=== PATIENT | male | born 1960 | race American Indian/Alaskan Native ===

== ENCOUNTER 2021-11-27 05:54 | Day surgery (SDC) | payer MEDICAID ==
[2021-11-21 11:33] LABS: Hematocrit 41.8 % (35.5-45.6); Hemoglobin 13.6 gm/dl (11.8-15.2); Mean Corpuscular HGB Conc 33 % (32-34); Mean Corpuscular Volume 94 fl (84-94); Platelet Count 173 K/mm3 (140-440); Red Blood Count 4.44 M/mm3 (3.65-5.03); Red Cell Distribution Width 15.5 % (13.2-15.2)
[2021-11-21 11:48] LABS: Alanine Aminotransferase 12 units/L (7-56); Albumin 4.3 g/dL (3.9-5); Blood Urea Nitrogen 12 mg/dL (9-20); Calcium 10.4 mg/dL (8.4-10.2); Hemolysis Index 3
[2021-11-21 11:50] LABS: BUN/Creatinine Ratio 24
--- NOTE | 2021-11-21 14:25 | Anesthesia Consultation ---
Anesthesia Consult and Med Hx Date of service: 11/27/21 - Airway Anesthetic Teeth Evaluation: Poor (loose lower incisors, multiple missing and decaying teeth) ROM Head & Neck: Adequate Mental/Hyoid Distance: Adequate Mallampati Class: Class III Intubation Access Assessment: Possibly Difficult - Pulmonary Exam CTA: Yes (no wheezing, good air entry throughout) - Cardiac Exam Cardiac Exam: RRR - Pre-Operative Health Status ASA Pre-Surgery Classification: ASA4 Proposed Anesthetic Plan: General - Pulmonary Hx Smoking: Yes (1/2 PPD) SOB: Yes (chronic stable MEEK) COPD: Yes Home Oxygen Therapy: No (has home O2 tank but does not use; normal RA SpO2 in PAT) - Cardiovascular System Hx Hypertension: No Hx Heart Attack/AMI: No Hx Percutaneous Transluminal Coronary Angioplasty (PTCA): No Hx Cardia Arrhythmia: No - Central Nervous System CVA: No - Endocrine Hx Renal Disease: No Hx Liver Disease: No Hx Insulin Dependent Diabetes: No Hx Non-Insulin Dependent Diabetes: No Hx Thyroid Disease: No - Other Systems Hx Alcohol Use: Yes (hx EtOH abuse, currently drinks 8oz beer daily; taking naltrexone) - Additional Comments Anesthesia Medical History Comments: No prior GA. No FHx anesthetic complications. Instructed to hold naltrexone 3 days prior to surgery and to use symbicort and spiriva inhalers morning of surgery. Discussed possibility of post-op respiratory insufficiency requiring inpatient admission.
[2021-11-27] MEDS ORDERED: MIDAZOLAM 2 MG/2 ML INJ IV NR (06:00)
[2021-11-27] MEDS ORDERED: LACTATED RINGERS 1,000 ML IV SCH (06:00)
[2021-11-27] MEDS ORDERED: BACTERIOSTATIC SODIUM CHLORIDE 0.9% 30 ML VIAL INFILTRATI ONE (06:34)
[2021-11-27] MEDS ORDERED: fentaNYL 100 MCG/2 ML INJ ONE ×2 (07:23→10:52)
[2021-11-27] MEDS ORDERED: propofoL 200 MG/20 ML VIAL IV ONE (07:23)
[2021-11-27] MEDS ORDERED: LIDOCAINE MPF (2%) 20 MG/1 ML VIAL 5 ML ONE (07:23)
[2021-11-27] MEDS ORDERED: HYDROmorphone 1 MG/1 ML INJ IV PRN ×2 (07:38)
[2021-11-27] MEDS ORDERED: ONDANSETRON 4 MG/2 ML INJ IV PRN (07:38)
--- NOTE | 2021-11-27 07:38 | Anesthesia Day of Surgery ---
Anesthesia Day of Surgery - Day of Surgery Patient Examined: Yes Patient H&P Reviewed: Yes Patient is NPO: Yes
[2021-11-27] MEDS ORDERED: GENTAMICIN/NS 80 MG/100 ML 100 ML IV ONE ×2 (09:23→10:00)
[2021-11-27] MEDS ORDERED: GENTAMICIN 80 MG in SODIUM CHLORIDE 0.9% 100 ML IV SCH (09:30)
[2021-11-27] MEDS ORDERED: ceFAZolin/STERILE WATER 2 GM/20 ML SYRINGE IV NR (10:00)
[2021-11-27] MEDS ORDERED: SODIUM CHLORIDE 0.9% IRRIG SOLN 2000 ML IR ONE (10:03)
[2021-11-27] MEDS ORDERED: dexAMETHasone 20 MG/5 ML VIAL ONE (10:18)
[2021-11-27] MEDS ORDERED: ONDANSETRON 4 MG/2 ML INJ ONE (10:18)
[2021-11-27] MEDS ORDERED: PHENYLEPHRINE/NS 1,000 MCG/10 ML SYRINGE (OR USE) IV ONE (10:25)
--- NOTE | 2021-11-27 11:07 | Operative Report ---
DATE OF SURGERY: 11/27/2021 PREOPERATIVE DIAGNOSES: 1. Urinary retention. 2. Benign prostatic enlargement. POSTOPERATIVE DIAGNOSE: 1. Urinary retention. 2. Benign prostatic enlargement. OPERATIVE PROCEDURE: TURP/___. ATTENDING: Surinder Hoffman MD UNDERGROUND PRODUCTION FOREPERSON: None. ANESTHESIA: General. ESTIMATED BLOOD LOSS: 25 mL. DRAINS: A 22-[place] 3-way Mujica catheter. SPECIMENS: TUR chips. COMPLICATIONS: None. INDICATIONS FOR PROCEDURE: The patient is a 61-year-old man who presented in urinary retention. Evaluation revealed an obstructing enlarged prostate. He was brought to the operating room for outlet reduction in the hopes that it would relieve his urinary retention. DESCRIPTION OF PROCEDURE IN DETAIL: After the induction of suitable anesthesia and proper positioning and preparation in the dorsal lithotomy positioning, a bipolar resectoscope was used to enter the bladder under direct visualization. There were no bladder or urethral mucosal lesions. The patient did have an obstructing prostate. Specifically, he had an enlarged median lobe and lateral lobe hypertrophy. The resection began by using the bipolar electrode and incising the bladder neck at 5 and 7 o'clock. This lowered the bladder neck. The resulting excess adenoid tissue on the bladder neck was then resected with the loop electrocautery. The remaining lateral lobe hypertrophy was then resected using a combination of the bipolar electrode and the loop electrocautery. All TUR chips were removed from the bladder prior to the completion of the procedure. Once the resection was complete, tedious hemostasis was undertaken and achieved. Using a combination of the loop electrocautery and the bipolar electrode, the resection bed was inspected very carefully and fulgurated extensively to ensure that there was excellent hemostasis, which there was. Once hemostasis was achieved, the bladder was inspected multiple times to ensure there were no remaining chips. There were none. The resection bed was inspected one more time and it was hemostatic. A resectoscope was then removed, and a Mujica catheter was placed and attached to gravity drainage. The patient was then awakened from anesthesia and transferred to the recovery room in stable condition. He tolerated the procedure well. He will return in approximately 5 days for catheter removal. TID: [id number] RECEIPT: [id number] CRISTY/MARIO
[2021-11-27 12:39] VITALS: BP 135/86
--- NOTE | 2021-11-27 17:20 | Post Anesthesia Evaluation ---
- Post Anesthesia Evaluation Patient Participated: Yes Airway Patent: Yes Stable Respiratory Function: Yes Nausea/Vomiting: No Temp > 96.8F: Yes Pain Manageable: Yes Adequeate Hydration: Yes Anesthesia Complications: No Block Receding Appropriately: Not Applicable Patient on Ventilator: No
== END 2021-11-27 12:20 | disposition home or self-care (01) ==
LOC: OR 05:54
PROVIDERS: ATTEND Urology
DX: N40.0 Benign prostatic hyperplasia without lower urinary tract symptoms (principal); R33.8 Other retention of urine; F17.210 Nicotine dependence, cigarettes, uncomplicated; J44.9 Chronic obstructive pulmonary disease, unspecified; Z20.822 Contact with and (suspected) exposure to COVID-19; Z79.899 Other long term (current) drug therapy; Z72.89 Other problems related to lifestyle; Z98.890 Other specified postprocedural states
CPT/HCPCS: 36415; 52601; 80053; 85027; 86850; 86900; 86901; 88305; J0690; J1100; J1580; J2250; J2370; J2405; J2704; J3010; J3490; J7120; U0003